=== PATIENT | male | born 1985 | race Caucasian/White ===

== ENCOUNTER 2016-09-23 02:51 | Emergency (ER) | payer OTHER ==
[~2016-09-23] VITALS: Ht 175.3 cm; Wt 85.7 kg
[2016-09-23 02:51] VITALS: BP 147/86; PULSE 104; RESP 14; TEMP 97.9; O2SAT 97
--- NOTE | 2016-09-23 02:51 | NUR ---
Patient to [facility] for evaluation. Side rails up. Report given to CAROLYN SOUZA.
--- NOTE | 2016-09-23 03:13 | NUR ---
Written and verbal consent obtained from patient for blood alcohol, name and verified by patient. Disinfected patient's skin with povidone-iodine that did not contain alcohol or other volatile organic compound. Collected the blood from the subject named by venipuncture, in the presence of Officer #[id number]. Used a sterile, dry hypodermic needle and dry vacuum blood collection. The dry vacuum blood collection was supplied by the officer named above. Withdrew a specimen of blood from right antecubital of the subject named above. Inverted the blood tube several times to ensure that the preservative and anticoagulant were thoroughly mixed in the blood specimen. I initialed the blood tube label for identification. The labeled blood tube was handed directly to the Officer named above. The blood tube stopper remained in place while I had possession of the blood tube. The Officer placed tube into envelope and sealed it in my presence. Envelope initialed by myself and Officer named above. Patient tolerated well, bandage applied, and bleeding controlled.
--- NOTE | 2016-09-23 03:13 | NUR ---
Note andrew in ED - 09/23/16 at 0458 by [email or web address] Patient accompanied to [facility] with [facility]. Patient in stable condition. ID arm band removed. Patient educated on pain management and to follow up with PMD. Pain Scale 0/10 Opportunity for questions provided and answered.
[2016-09-23 03:20] VITALS: BP 142/87; PULSE 98; RESP 14; TEMP 97.9; O2SAT 98
--- NOTE | 2016-09-23 03:20 | NUR ---
Patient accompanied to [facility] with [facility]. Patient in stable condition. ID arm band removed. Patient educated on pain management and to follow up with PMD. Pain Scale 0/10 Opportunity for questions provided and answered.
== END 2016-09-23 03:20 ==
LOC: SED 02:51
DX: Z02.83 Encounter for blood-alcohol and blood-drug test (principal)